=== PATIENT | male | born 1965 | race Caucasian/White ===

== ENCOUNTER 2021-01-17 14:01 | Inpatient (IN) | payer MEDICAID ==
[~2021-01-17] VITALS: Ht 172.7 cm; Wt 62.1 kg
[2021-01-17] MEDS ORDERED: morphine 4 MG/ML inj SYRINge IV PRN (14:30)
[2021-01-17] MEDS ORDERED: furosemide 10 MG/1 ML 10ml inj IV ONE (14:30)
[2021-01-17] MEDS ORDERED: nitroGLYCERIN 0.4mg SUBLingual tab SL PRN (15:05)
--- NOTE | 2021-01-17 15:15 | NUR ---
LAB AT BEDSIDE
--- NOTE | 2021-01-17 15:23 | NUR ---
ECHO AT BEDSIDE
[2021-01-17 16:39] LABS: MEAN CORPUSCULAR VOLUME 99.5 FL (78-98); MONOCYTES # (AUTO) 0.7 X10'3 (0-0.9)
[2021-01-17 16:41] LABS: BASOPHILS # (AUTO) 0.1 X10'3 (0-0.2); BASOPHILS % (AUTO) 0.7 % (0-1); EOSINOPHILS # (AUTO) 0.2 X10'3 (0-0.9); EOSINOPHILS % (AUTO) 1.8 % (0-6); HEMATOCRIT 42.6 % (42.0-52.0); HEMOGLOBIN 14.6 g/dl (14.0-17.9); LYMPHOCYTES # (AUTO) 3.7 X10'3 (1.1-4.8); LYMPHOCYTES % (AUTO) 30.2 % (21-51); MEAN CORPUSCULAR HEMOGLOBIN 34.1 PG (27.0-31.0); MEAN CORPUSCULAR HGB CONC 34.2 g/dL (33.0-36.5); MEAN PLATELET VOLUME 7.5 FL (7.4-10.4); MONOCYTES % (AUTO) 5.4 % (2-12); NEUTROPHILS # (AUTO) 7.6 X10'3 (1.8-7.7); NEUTROPHILS % (AUTO) 61.9 % (42-75); PLATELET COUNT 327 X10'3 (140-440); RED BLOOD COUNT 4.29 X10'6 (4.70-6.10); RED CELL DISTRIBUTION WIDTH 13.4 % (11.5-14.5); WHITE BLOOD COUNT 12.3 X10'3 (4.5-11.0)
[2021-01-17 16:48] LABS: ALANINE AMINOTRANSFERASE 62 U/L (12-78); ALBUMIN 3.6 G/DL (3.4-5.0); ALBUMIN/GLOBULIN RATIO 0.9 (1.1-1.5); ALKALINE PHOSPHATASE 97 IU/L (46-116); ANION GAP 11 (8-16); ASPARTATE AMINO TRANSFERASE 33 U/L (10-37); BILIRUBIN,TOTAL 0.6 MG/DL (0.1-1.0); BLOOD UREA NITROGEN 24 MG/DL (7-18); CHLORIDE 104 MMOL/L (99-107); CREATININE 1.26 MG/DL (0.60-1.10); GLUCOSE 130 MG/DL (70-104); POTASSIUM 3.8 MMOL/L (3.5-5.1); SODIUM 140 MMOL/L (135-145); TOTAL CARBON DIOXIDE 25.5 MMOL/L (24-32); TOTAL PROTEIN 7.8 G/DL (6.4-8.2); eGFR 59 ML/MIN
[2021-01-17] MEDS ORDERED: heparin 10,000 units/1 ML INJ IV PRN (17:05)
[2021-01-17] MEDS ORDERED: heparin 10,000 units/1 ML INJ IV ONE ×2 (17:05→17:20)
[2021-01-17] MEDS ORDERED: heparin 25,000 UNIT/250ml bag 250 ML IV SCH (17:05)
[2021-01-17] MEDS ORDERED: iohexol 350MG/ML 100ml bottle IV ONE (17:07)
[2021-01-17 18:12] LABS: PARTIAL THROMBOPLASTIN TIME 25 SECONDS (22-32)
[2021-01-17 18:22] LABS: CLARITY,URINE CLEAR (Clear); COLOR,URINE STRAW (Yellow); GLUCOSE, URINE NEGATIVE (Neg); KETONES,URINE NEGATIVE (Neg); LEUKOCYTE ESTERASE ,URINE NEGATIVE (Neg); NITRITES, URINE NEGATIVE (Neg); OCCULT BLOOD,URINE NEGATIVE (Neg); PROTEIN,URINE NEGATIVE (Neg); UROBILINOGEN,URINE 0.2 E.U/dL (0.2-1.0)
[2021-01-17 18:27] LABS: URINE AMPHETAMINE SCREEN POSITIVE (Neg); URINE BARBITUATE SCREEN NEGATIVE (Neg); URINE BENZODIAZEPINES SCREEN NEGATIVE (Neg); URINE CANNABINOID SCREEN NEGATIVE (Neg); URINE COCAINE SCREEN NEGATIVE (Neg); URINE METHADONE SCREEN NEGATIVE (Neg); URINE OPIATE SCREEN POSITIVE (Neg); URINE PHENCYCLIDINE SCREEN NEGATIVE (Neg)
--- NOTE | 2021-01-17 18:33 | NUR ---
SNT PT BACK TO ER, UNUSABLE IV, NEED A 20G
[2021-01-17 18:44] LABS: UA COLLECTION TYPE URINAL
--- NOTE | 2021-01-17 19:19 | NUR ---
SUSHIL GAGNON #[phone] CALL WHEN HE NEEDS A RIDE
[2021-01-17] MEDS ORDERED: NO HOME MEDS (20:46)
[2021-01-17] MEDS ORDERED: ondansetron/PF 4mg/2ml inj IV PRN (21:05)
[2021-01-17] MEDS ORDERED: morphine 2 MG/ML inj. syringe IV PRN (21:05)
[2021-01-17] MEDS ORDERED: magnesium 2GM in 50ml NS 50 ML IV PRN (21:05)
[2021-01-17] MEDS ORDERED: acetaminophen 325mg tablet PO PRN ×2 (21:05)
[2021-01-17] MEDS ORDERED: mag hydrox/Alum hydrox/simeth 30ml oral suspension PO PRN (21:05)
[2021-01-17] MEDS ORDERED: potassium Cl 40MEQ/1/2NS 520ml 520 ML IV PRN ×2 (21:05)
[2021-01-17] MEDS ORDERED: potassium Cl 20 mEq SR tablet PO PRN (21:05)
[2021-01-17] MEDS ORDERED: magnesium hydroxide 30ml (MOM) UD suspension PO PRN (21:05)
[2021-01-17] MEDS ORDERED: magnesium Cl slow-release 64mg tablet PO PRN (21:05)
[2021-01-17] MEDS ORDERED: magnesium 4gm in 100ml NS 100 ML IV PRN (21:05)
[2021-01-17] MEDS: aspirin 325mg tablet PO SCH (21:51)
[2021-01-17] MEDS: metoprolol tartrate 50mg tablet PO SCH (21:51)
[2021-01-17] MEDS: atorvastatin 20mg tablet PO SCH (21:51)
[2021-01-17 21:55] LABS: HEMOGLOBIN A1C 5.8 % (4.5-6.2)
[2021-01-17] MEDS: morphine 2 MG/ML inj. syringe IV PRN ×2 (22:50→22:53)
[2021-01-18 02:00] VITALS: BP 128/96
[2021-01-18 02:33] LABS: BASOPHILS # (AUTO) 0.1 X10'3 (0-0.2); BASOPHILS % (AUTO) 0.7 % (0-1); EOSINOPHILS # (AUTO) 0.3 X10'3 (0-0.9); EOSINOPHILS % (AUTO) 2.6 % (0-6); HEMATOCRIT 40.1 % (42.0-52.0); HEMOGLOBIN 13.7 g/dl (14.0-17.9); LYMPHOCYTES # (AUTO) 2.7 X10'3 (1.1-4.8); LYMPHOCYTES % (AUTO) 24.4 % (21-51); MEAN CORPUSCULAR HEMOGLOBIN 33.9 PG (27.0-31.0); MEAN CORPUSCULAR HGB CONC 34.2 g/dL (33.0-36.5); MEAN CORPUSCULAR VOLUME 99.2 FL (78-98); MEAN PLATELET VOLUME 7.6 FL (7.4-10.4); MONOCYTES # (AUTO) 0.7 X10'3 (0-0.9); MONOCYTES % (AUTO) 6.5 % (2-12); NEUTROPHILS # (AUTO) 7.2 X10'3 (1.8-7.7); NEUTROPHILS % (AUTO) 65.8 % (42-75); PLATELET COUNT 307 X10'3 (140-440); RED BLOOD COUNT 4.04 X10'6 (4.70-6.10); WHITE BLOOD COUNT 10.9 X10'3 (4.5-11.0)
[2021-01-18 02:42] LABS: ALANINE AMINOTRANSFERASE 52 U/L (12-78); ALBUMIN 2.9 G/DL (3.4-5.0); ALBUMIN/GLOBULIN RATIO 0.8 (1.1-1.5); ALKALINE PHOSPHATASE 83 IU/L (46-116); ANION GAP 10 (8-16); ASPARTATE AMINO TRANSFERASE 29 U/L (10-37); BILIRUBIN,TOTAL 0.6 MG/DL (0.1-1.0); BLOOD UREA NITROGEN 22 MG/DL (7-18); BUN/CREATININE RATIO 16.3 (5.4-32.0); CALCIUM 8.5 MG/DL (8.5-10.1); CHLORIDE 103 MMOL/L (99-107); CREATININE 1.35 MG/DL (0.60-1.10); GLUCOSE 120 MG/DL (70-104); POTASSIUM 3.2 MMOL/L (3.5-5.1); SODIUM 140 MMOL/L (135-145); TOTAL PROTEIN 6.6 G/DL (6.4-8.2); eGFR 55 ML/MIN
[2021-01-18 02:51] LABS: CHOL/HDL RATIO 3.2 (0.00-4.99); CHOLESTEROL 155 MG/DL (0-200); HDL CHOLESTEROL 49 MG/DL (35-60); LDL CHOLESTEROL 98 MG/DL (50-100); MAGNESIUM 1.6 MG/DL (1.5-2.4); TRIGLYCERIDES 72 MG/DL (20-135)
[2021-01-18] MEDS: HYDROcodone/acetaminophen 5mg/325mg tablet PO PRN ×2 (03:32→21:31)
[2021-01-18 06:00] VITALS: BP 154/100
--- NOTE | 2021-01-18 06:15 | NUR ---
Patient in room PCU 3023. I have received report from Wesly CUEVAS and had the opportunity to ask questions and assume patient care.
--- NOTE | 2021-01-18 06:20 | NUR ---
Patient in room PCU 3023. I have received report from FAITH Geller and had the opportunity to ask questions and assume patient care.
[2021-01-18] MEDS: aspirin 325mg tablet PO SCH (08:10)
[2021-01-18] MEDS: atorvastatin 20mg tablet PO SCH (08:10)
[2021-01-18] MEDS: cloNIDine 0.1 mg tablet PO SCH ×3 (08:11→21:31)
[2021-01-18] MEDS: lisinopril 5mg tablet PO SCH (08:11)
[2021-01-18] MEDS: furosemide 40mg/4ml inj IV SCH ×2 (08:12→21:31)
[2021-01-18] MEDS: potassium Cl 20 mEq SR tablet PO PRN ×3 (08:12→16:31)
[2021-01-18] MEDS: spironolactone 25 MG tablet PO SCH (08:12)
[2021-01-18] MEDS: metoprolol tartrate 50mg tablet PO SCH ×2 (08:13→21:31)
[2021-01-18] MEDS: K and/or MAG REPLACEMENT MC SCH ×2 (08:22→20:00)
[2021-01-18 11:00] VITALS: BP 161/65
--- NOTE | 2021-01-18 14:27 | NUR ---
I have reviewed and agree with all medications administered and interventions performed by [facility] Student, Marleni Felipe.
[2021-01-18 15:00] VITALS: BP 109/75
--- NOTE | 2021-01-18 15:35 | NUR ---
Removed EJ from right neck; it was not intact/patent - pt tolerated well. Tip intact.
--- NOTE | 2021-01-18 18:00 | NUR ---
[place] documentation: I have reviewed and agree with all interventions, assessments performed and documented by Flor CUEVAS.
--- NOTE | 2021-01-18 18:20 | NUR ---
Problems reprioritized. Patient report given, questions answered & plan of care reviewed with Wesly CUEVAS.
--- NOTE | 2021-01-18 18:27 | NUR ---
Problems reprioritized. Patient report given, questions answered & plan of care reviewed with FAITH Jarrell.
[2021-01-19 06:52] LABS: BASOPHILS % (AUTO) 0.5 % (0-1); EOSINOPHILS # (AUTO) 0.1 X10'3 (0-0.9); EOSINOPHILS % (AUTO) 1.2 % (0-6); HEMATOCRIT 46.3 % (42.0-52.0); HEMOGLOBIN 15.8 g/dl (14.0-17.9); LYMPHOCYTES # (AUTO) 2.5 X10'3 (1.1-4.8); LYMPHOCYTES % (AUTO) 24.8 % (21-51); MEAN CORPUSCULAR HEMOGLOBIN 34.6 PG (27.0-31.0); MEAN CORPUSCULAR VOLUME 101.9 FL (78-98); MEAN PLATELET VOLUME 7.9 FL (7.4-10.4); MONOCYTES # (AUTO) 0.8 X10'3 (0-0.9); MONOCYTES % (AUTO) 8.2 % (2-12); NEUTROPHILS # (AUTO) 6.5 X10'3 (1.8-7.7); NEUTROPHILS % (AUTO) 65.3 % (42-75); PLATELET COUNT 274 X10'3 (140-440); RED BLOOD COUNT 4.55 X10'6 (4.70-6.10); RED CELL DISTRIBUTION WIDTH 13.4 % (11.5-14.5); WHITE BLOOD COUNT 9.9 X10'3 (4.5-11.0)
[2021-01-19 07:00] VITALS: BP 129/77
[2021-01-19 07:19] LABS: ALANINE AMINOTRANSFERASE 41 U/L (12-78); ALBUMIN 2.8 G/DL (3.4-5.0); ALBUMIN/GLOBULIN RATIO 0.7 (1.1-1.5); ALKALINE PHOSPHATASE 81 IU/L (46-116); ANION GAP 10 (8-16); ASPARTATE AMINO TRANSFERASE 29 U/L (10-37); BILIRUBIN,TOTAL 0.4 MG/DL (0.1-1.0); BLOOD UREA NITROGEN 34 MG/DL (7-18); BUN/CREATININE RATIO 22.7 (5.4-32.0); CALCIUM 8.9 MG/DL (8.5-10.1); CHLORIDE 103 MMOL/L (99-107); GLUCOSE 89 MG/DL (70-104); MAGNESIUM 1.9 MG/DL (1.5-2.4); POTASSIUM 4.2 MMOL/L (3.5-5.1); SODIUM 139 MMOL/L (135-145); TOTAL PROTEIN 6.7 G/DL (6.4-8.2); eGFR 49 ML/MIN
[2021-01-19] MEDS: atorvastatin 20mg tablet PO SCH (07:48)
[2021-01-19] MEDS: potassium Cl 20 mEq SR tablet PO PRN (07:48)
[2021-01-19] MEDS: HYDROcodone/acetaminophen 5mg/325mg tablet PO PRN ×5 (07:49→09:00)
[2021-01-19] MEDS: metoprolol tartrate 50mg tablet PO SCH (07:49)
[2021-01-19] MEDS: furosemide 40mg/4ml inj IV SCH (07:50)
[2021-01-19] MEDS: spironolactone 25 MG tablet PO SCH (07:50)
[2021-01-19] MEDS: cloNIDine 0.1 mg tablet PO SCH (07:50)
[2021-01-19] MEDS: lisinopril 5mg tablet PO SCH (07:50)
[2021-01-19] MEDS: aspirin 325mg tablet PO SCH (07:50)
[2021-01-19] MEDS: K and/or MAG REPLACEMENT MC SCH (07:51)
--- NOTE | 2021-01-19 09:50 | NUR ---
Malnutrition consult: Pt reports wt loss with decreased appetite per malnutrition risk screen with RN. No recent wt hx in EMR, current scaled wt is appropriate. Pt on a heart healthy diet documented with 100% PO intake meeting estimated nutrient needs. Pt with no documented decrease in muscle strength or edema. Pt appears WDWN per ED report. Pt currently lacks a minimum of two criteria for malnutrition. Will continue to follow. Addendum: 01/19/21 at [address] Amended: Links added.
[2021-01-19] MEDS ORDERED: ASPI-611 PO (10:59)
[2021-01-19] MEDS ORDERED: METO50TA16 PO (10:59)
[2021-01-19] MEDS ORDERED: SPIR25TA PO (10:59)
[2021-01-19] MEDS ORDERED: ATOR20TA66 PO (10:59)
[2021-01-19] MEDS ORDERED: CLON0.1T2 PO (10:59)
[2021-01-19] MEDS ORDERED: LISI-642 PO (10:59)
[2021-01-19 11:00] VITALS: BP 101/74
--- NOTE | 2021-01-19 11:40 | NUR ---
pt dc home in zero distress. IV removed intact, pt verbalized understanding of dc instructions. pt ambulated to lobby with myself. picked pt up
== END 2021-01-19 11:37 | disposition home or self-care (01) | DRG 190 ==
LOC: ER 14:04 → ED HOLD 21:04 → PCU 3S 22:05
PROVIDERS: ADMIT Internal Medicine; ATTEND Internal Medicine
PROC: B2261ZZ Computerized Tomography (CT Scan) of Right and Left Heart using Low Osmolar Contrast (ICD-10-PCS; principal; 2021-01-17)
DX: I21.4 Non-ST elevation (NSTEMI) myocardial infarction (principal); I11.0 Hypertensive heart disease with heart failure; Z20.822 Contact with and (suspected) exposure to COVID-19; F17.210 Nicotine dependence, cigarettes, uncomplicated; F15.10 Other stimulant abuse, uncomplicated; J91.8 Pleural effusion in other conditions classified elsewhere; Z88.8 Allergy status to other drugs, medicaments and biological substances; I42.7 Cardiomyopathy due to drug and external agent; I50.23 Acute on chronic systolic (congestive) heart failure
CPT/HCPCS: 36415; 71045; 71275; 80053; 80061; 80305; 81003; 83036; 83605; 83735; 83880; 84484; 85025; 85610; 85730; 87040; 87081; 87635; 93005; 93306; 93308; 94760; 96365; 96375; 97116; 97161; 99291; 99292; C9803; G0378; J1644; J1940; J2270; J2405; Q9967

== ENCOUNTER 2021-04-19 02:15 | Inpatient (IN) | payer MEDICAID ==
[~2021-04-19] VITALS: Ht 172.7 cm; Wt 63.6 kg
[~2021-04-19 02:15] MED LIST: ATOR20TA66 PO; CLON0.1T2 PO; LISI-642 PO; METO50TA16 PO; SPIR25TA PO
[2021-04-19] MEDS ORDERED: furosemide 40mg/4ml inj IV ONE (02:35)
[2021-04-19] MEDS ORDERED: aspirin 81mg tab.chew PO ONE ×2 (02:35→04:10)
[2021-04-19] MEDS ORDERED: dexamethasone sod phosphate 10mg/ml inj IV STA (02:38)
[2021-04-19] MEDS ORDERED: ipratropium/albuterol 3ml nebule NEB ONE (02:40)
[2021-04-19 03:27] LABS: BASOPHILS # (AUTO) 0.1 X10'3 (0-0.2); BASOPHILS % (AUTO) 0.5 % (0-1); EOSINOPHILS # (AUTO) 0.1 X10'3 (0-0.9); EOSINOPHILS % (AUTO) 0.7 % (0-6); HEMATOCRIT 45.5 % (42.0-52.0); HEMOGLOBIN 15.4 g/dl (14.0-17.9); LYMPHOCYTES # (AUTO) 2.2 X10'3 (1.1-4.8); LYMPHOCYTES % (AUTO) 17.2 % (21-51); MEAN CORPUSCULAR HEMOGLOBIN 34.3 PG (27.0-31.0); MEAN CORPUSCULAR HGB CONC 33.9 g/dL (33.0-36.5); MEAN CORPUSCULAR VOLUME 101.1 FL (78-98); MEAN PLATELET VOLUME 7.5 FL (7.4-10.4); MONOCYTES # (AUTO) 0.9 X10'3 (0-0.9); MONOCYTES % (AUTO) 7.1 % (2-12); NEUTROPHILS # (AUTO) 9.7 X10'3 (1.8-7.7); NEUTROPHILS % (AUTO) 74.5 % (42-75); PLATELET COUNT 295 X10'3 (140-440); RED CELL DISTRIBUTION WIDTH 13.6 % (11.5-14.5)
[2021-04-19 03:37] LABS: ALANINE AMINOTRANSFERASE 66 U/L (12-78); ALBUMIN/GLOBULIN RATIO 0.7 (1.1-1.5); ALKALINE PHOSPHATASE 106 IU/L (46-116); ANION GAP 9 (8-16); ASPARTATE AMINO TRANSFERASE 43 U/L (10-37); BILIRUBIN,TOTAL 0.6 MG/DL (0.1-1.0); BLOOD UREA NITROGEN 31 MG/DL (7-18); BUN/CREATININE RATIO 25.6 (5.4-32.0); CALCIUM 8.8 MG/DL (8.5-10.1); CHLORIDE 99 MMOL/L (99-107); CREATININE 1.21 MG/DL (0.60-1.10); GLUCOSE 115 MG/DL (70-104); POTASSIUM 4.3 MMOL/L (3.5-5.1); SODIUM 138 MMOL/L (135-145); TOTAL CARBON DIOXIDE 30.2 MMOL/L (24-32); TOTAL PROTEIN 7.6 G/DL (6.4-8.2); eGFR 62 ML/MIN
[2021-04-19 03:55] LABS: TROPONIN I 0.65 NG/ML (0.0-0.05)
[2021-04-19] MEDS ORDERED: heparin 10,000 units/1 ML INJ IV PRN ×2 (04:00→04:05)
[2021-04-19] MEDS ORDERED: heparin 10,000 units/1 ML INJ IV ONE ×2 (04:00→04:05)
[2021-04-19] MEDS ORDERED: heparin 25,000 UNIT/250ml bag 250 ML IV SCH ×2 (04:00→04:02)
[2021-04-19] MEDS ORDERED: iohexol 350MG/ML 100ml bottle IV ONE (04:08)
[2021-04-19 04:58] LABS: D-DIMER 1.51 MG/L FEU (0-0.50)
[2021-04-19] MEDS ORDERED: magnesium Cl slow-release 64mg tablet PO PRN (05:55)
[2021-04-19] MEDS ORDERED: acetaminophen 325mg tablet PO PRN ×2 (05:55)
[2021-04-19] MEDS ORDERED: magnesium 2GM in 50ml NS 50 ML IV PRN (05:55)
[2021-04-19] MEDS ORDERED: magnesium 4gm in 100ml NS 100 ML IV PRN (05:55)
[2021-04-19] MEDS ORDERED: potassium Cl 40MEQ/1/2NS 520ml 520 ML IV PRN ×2 (05:55)
[2021-04-19] MEDS ORDERED: magnesium hydroxide 30ml (MOM) UD suspension PO PRN (05:55)
[2021-04-19] MEDS ORDERED: mag hydrox/Alum hydrox/simeth 30ml oral suspension PO PRN (05:55)
[2021-04-19] MEDS ORDERED: potassium Cl 20 mEq SR tablet PO PRN ×2 (05:55)
--- NOTE | 2021-04-19 06:47 | NUR ---
Per labels molder COVID results negative. Awaiting fax results to verify.
--- NOTE | 2021-04-19 07:07 | NUR ---
Dr. Canela paged for troponin result. Awaiting call back.
[2021-04-19 07:38] VITALS: BP 153/116
[2021-04-19] MEDS: furosemide 40mg/4ml inj IV SCH ×2 (07:51→20:02)
[2021-04-19] MEDS: metoprolol tartrate 50mg tablet PO SCH ×2 (07:52→20:03)
[2021-04-19] MEDS: albuterol 2.5 MG/3 ML nebule NEB SCH ×5 (08:00→23:18)
[2021-04-19] MEDS: K and/or MAG REPLACEMENT MC SCH ×2 (08:00→20:00)
[2021-04-19] MEDS: morphine 2 MG/ML inj. syringe IV PRN ×3 (09:33→21:58)
--- NOTE | 2021-04-19 09:36 | NUR ---
notified. PAGER ID: [phone] MESSAGE: RE; MazariegosFred. [id number]. Printing Press Operator showed me the ECHO images, it appears there is around a 2-3cm long thrombus in LV. Images should be on Infin[employer] but he is still writing report. Thanks. Dinah. [phone].
[2021-04-19] MEDS: CefTRIAXone 2gm/D5W 50ml BAG 50 ML IV SCH (09:39)
--- NOTE | 2021-04-19 09:55 | NUR ---
notified. PAGER ID: [phone] MESSAGE: RE: Fred Mazariegos. [id number]. Critical troponin. . Thanks. Dinah. [phone].
--- NOTE | 2021-04-19 10:48 | NUR ---
Received verbal orders from Dr. Canela to start 5mg PO Elaquis BID, first dose now. Once first dose is given; stop heparin drip. Dr. Mary to consult.
[2021-04-19 11:00] VITALS: BP 125/84
[2021-04-19] MEDS: apixaban 5mg tablet PO SCH ×2 (11:10→20:02)
[2021-04-19] MEDS ORDERED: SPIR25TA5 PO (13:19)
[2021-04-19] MEDS ORDERED: LISI-790 PO (13:19)
[2021-04-19] MEDS ORDERED: METO50TA17 PO (13:19)
[2021-04-19] MEDS ORDERED: ATOR20TA PO (13:19)
[2021-04-19] MEDS ORDERED: CLON0.1T PO (13:19)
[2021-04-19 15:00] VITALS: BP 119/88
--- NOTE | 2021-04-19 15:36 | NUR ---
notified. PAGER ID: [phone] MESSAGE: RE: Fred Cortez. [id number]. 12hr troponin. Critical. 3.67. Also have a question regarding anticoagulation on another patient. Thanks. Dinah. [phone].
--- NOTE | 2021-04-19 17:27 | NUR ---
notified. PAGER ID: [phone] MESSAGE: Re: Fred Mazariegos. [id number]. Usman called to notify that he is not going to consult on patient. thanks. Dinah. [phone].
--- NOTE | 2021-04-19 17:48 | NUR ---
Preceptee documentation: I have reviewed and agree with all interventions, assessments performed and documented by FAITH Uribe. Preceptee Medication Administration: For this medication-pass time frame, all medication were reviewed, dispensed, administered and documented per hospital policy by FAITH Uribe.
[2021-04-19 18:00] VITALS: BP 129/100
--- NOTE | 2021-04-19 18:26 | NUR ---
Problems reprioritized. Patient report given, questions answered & plan of care reviewed with Rubio RN.
[2021-04-19] MEDS: lactobacillus rhamnosus 10,000 MMU CELLS/CAPSULE PO SCH (20:02)
[2021-04-19] MEDS: ondansetron/PF 4mg/2ml inj IV PRN (21:58)
[2021-04-19] MEDS: temazepam 15mg capsule PO PRN (21:58)
[2021-04-19 22:00] VITALS: BP 129/87
--- NOTE | 2021-04-20 01:19 | NUR ---
patient had a 11-beat run of v-tach then converted back to normal sinus rhythm. asymptomatic vs stable, electrolytes within normal ranges. md will be notified of this .
--- NOTE | 2021-04-20 01:20 | NUR ---
Patient in room U 3016. I have received report from Dinah CUEVAS and had the opportunity to ask questions and assume patient care. Addendum: 04/20/21 at 0122 by Myriam Esparza RN received report at [id number]
[2021-04-20 02:00] VITALS: BP 129/95
[2021-04-20] MEDS: albuterol 2.5 MG/3 ML nebule NEB SCH ×6 (02:41→23:46)
[2021-04-20] MEDS: ondansetron/PF 4mg/2ml inj IV PRN (04:00)
[2021-04-20] MEDS: morphine 2 MG/ML inj. syringe IV PRN ×4 (04:01→20:48)
[2021-04-20 06:00] VITALS: BP 129/97
--- NOTE | 2021-04-20 06:08 | NUR ---
Problems reprioritized. Patient report given, questions answered & plan of care reviewed with Dinah CUEVAS & Carlene CUEVAS.
--- NOTE | 2021-04-20 06:39 | NUR ---
Patient in room PCU 3016. I have received report from FAITH Mera and had the opportunity to ask questions and assume patient care.
--- NOTE | 2021-04-20 07:09 | NUR ---
notified. PAGER ID: [phone] MESSAGE: Re: Fred Mazariegos. [id number]. t wave inversion noted in lead II, new from yesterday at this time. Thanks. Dinah. [phone].
[2021-04-20 07:35] LABS: BASOPHILS # (AUTO) 0.1 X10'3 (0-0.2); BASOPHILS % (AUTO) 0.3 % (0-1); EOSINOPHILS % (AUTO) 0 % (0-6); HEMATOCRIT 45.8 % (42.0-52.0); HEMOGLOBIN 15.5 g/dl (14.0-17.9); LYMPHOCYTES # (AUTO) 2.5 X10'3 (1.1-4.8); LYMPHOCYTES % (AUTO) 12.3 % (21-51); MEAN CORPUSCULAR HEMOGLOBIN 34.4 PG (27.0-31.0); MEAN CORPUSCULAR HGB CONC 33.8 g/dL (33.0-36.5); MEAN CORPUSCULAR VOLUME 101.6 FL (78-98); MEAN PLATELET VOLUME 7.5 FL (7.4-10.4); MONOCYTES # (AUTO) 1.3 X10'3 (0-0.9); MONOCYTES % (AUTO) 6.5 % (2-12); NEUTROPHILS # (AUTO) 16.6 X10'3 (1.8-7.7); NEUTROPHILS % (AUTO) 80.9 % (42-75); PLATELET COUNT 299 X10'3 (140-440); RED CELL DISTRIBUTION WIDTH 13.5 % (11.5-14.5); WHITE BLOOD COUNT 20.5 X10'3 (4.5-11.0)
[2021-04-20 07:52] LABS: ALANINE AMINOTRANSFERASE 57 U/L (12-78); ALBUMIN 2.9 G/DL (3.4-5.0); ALBUMIN/GLOBULIN RATIO 0.7 (1.1-1.5); ANION GAP 12 (8-16); ASPARTATE AMINO TRANSFERASE 73 U/L (10-37); BILIRUBIN,TOTAL 0.7 MG/DL (0.1-1.0); BLOOD UREA NITROGEN 44 MG/DL (7-18); BUN/CREATININE RATIO 31.4 (5.4-32.0); CALCIUM 8.9 MG/DL (8.5-10.1); CHLORIDE 95 MMOL/L (99-107); CHOL/HDL RATIO 2.9 (0.00-4.99); CHOLESTEROL 170 MG/DL (0-200); GLUCOSE 133 MG/DL (70-104); HDL CHOLESTEROL 59 MG/DL (35-60); LDL CHOLESTEROL 103 MG/DL (50-100); MAGNESIUM 2.4 MG/DL (1.5-2.4); POTASSIUM 4.1 MMOL/L (3.5-5.1); SODIUM 134 MMOL/L (135-145); TOTAL CARBON DIOXIDE 26.8 MMOL/L (24-32); TOTAL PROTEIN 7.3 G/DL (6.4-8.2); TRIGLYCERIDES 79 MG/DL (20-135); eGFR 52 ML/MIN
[2021-04-20] MEDS: K and/or MAG REPLACEMENT MC SCH ×2 (08:00→20:00)
[2021-04-20 08:18] LABS: ALKALINE PHOSPHATASE 90 IU/L (46-116)
[2021-04-20] MEDS: furosemide 40mg/4ml inj IV SCH ×2 (08:27→20:39)
[2021-04-20] MEDS: aspirin 325mg tablet PO SCH (08:28)
[2021-04-20] MEDS: apixaban 5mg tablet PO SCH ×2 (08:28→20:40)
[2021-04-20] MEDS: lactobacillus rhamnosus 10,000 MMU CELLS/CAPSULE PO SCH ×2 (08:29→20:40)
[2021-04-20] MEDS: metoprolol tartrate 50mg tablet PO SCH ×4 (08:29→20:40)
[2021-04-20] MEDS: CefTRIAXone 2gm/D5W 50ml BAG 50 ML IV SCH (08:43)
[2021-04-20] MEDS: nitroGLYCERIN 0.4mg SUBLingual tab SL PRN (10:58)
[2021-04-20 11:00] VITALS: BP 96/63
[2021-04-20 15:00] VITALS: BP 130/88
[2021-04-20] MEDS: lisinopril 5mg tablet PO SCH (15:00)
[2021-04-20] MEDS: atorvastatin 20mg tablet PO SCH (15:00)
[2021-04-20] MEDS: spironolactone 25 MG tablet PO SCH (15:00)
[2021-04-20 18:00] VITALS: BP 126/85
--- NOTE | 2021-04-20 18:36 | NUR ---
Problems reprioritized. Patient report given, questions answered & plan of care reviewed with FAITH Mcknight.
[2021-04-20 22:00] VITALS: BP 114/81
--- NOTE | 2021-04-20 22:10 | NUR ---
pt's Lantus was started without a recorded morning blood sugar. his preceding sugars were 230,241 and 153. i discussed it with the Charge nurse and she agreed with my reasoning. pt is being monitored as well.
[2021-04-21] VITALS (9 sets, daily range): BP systolic 110–142; BP diastolic 72–101
[2021-04-21] MEDS: albuterol 2.5 MG/3 ML nebule NEB SCH ×6 (03:03→23:21)
[2021-04-21] MEDS: morphine 2 MG/ML inj. syringe IV PRN ×4 (05:05→22:40)
--- NOTE | 2021-04-21 06:08 | NUR ---
Problems reprioritized. Patient report given, questions answered & plan of care reviewed with FAITH PARISH.
--- NOTE | 2021-04-21 06:20 | NUR ---
Patient in room PCU 3016. I have received report from Juan Luis CUEVAS and had the opportunity to ask questions and assume patient care.
[2021-04-21 06:57] LABS: BASOPHILS # (AUTO) 0.1 X10'3 (0-0.2); BASOPHILS % (AUTO) 0.5 % (0-1); EOSINOPHILS % (AUTO) 0.1 % (0-6); HEMATOCRIT 48.9 % (42.0-52.0); HEMOGLOBIN 16.7 g/dl (14.0-17.9); LYMPHOCYTES # (AUTO) 2.8 X10'3 (1.1-4.8); LYMPHOCYTES % (AUTO) 20.8 % (21-51); MEAN CORPUSCULAR HEMOGLOBIN 34.6 PG (27.0-31.0); MEAN CORPUSCULAR HGB CONC 34.1 g/dL (33.0-36.5); MEAN CORPUSCULAR VOLUME 101.8 FL (78-98); MEAN PLATELET VOLUME 7.9 FL (7.4-10.4); MONOCYTES # (AUTO) 1.1 X10'3 (0-0.9); NEUTROPHILS # (AUTO) 9.4 X10'3 (1.8-7.7); NEUTROPHILS % (AUTO) 70.6 % (42-75); PLATELET COUNT 322 X10'3 (140-440); RED BLOOD COUNT 4.81 X10'6 (4.70-6.10); RED CELL DISTRIBUTION WIDTH 13.7 % (11.5-14.5); WHITE BLOOD COUNT 13.3 X10'3 (4.5-11.0)
[2021-04-21 07:20] LABS: ALANINE AMINOTRANSFERASE 58 U/L (12-78); ALBUMIN/GLOBULIN RATIO 0.6 (1.1-1.5); ALKALINE PHOSPHATASE 89 IU/L (46-116); ANION GAP 13 (8-16); ASPARTATE AMINO TRANSFERASE 49 U/L (10-37); BILIRUBIN,TOTAL 0.5 MG/DL (0.1-1.0); BLOOD UREA NITROGEN 46 MG/DL (7-18); BUN/CREATININE RATIO 33.3 (5.4-32.0); CHLORIDE 93 MMOL/L (99-107); CREATININE 1.38 MG/DL (0.60-1.10); GLUCOSE 128 MG/DL (70-104); MAGNESIUM 2.3 MG/DL (1.5-2.4); POTASSIUM 4.1 MMOL/L (3.5-5.1); SODIUM 134 MMOL/L (135-145); TOTAL CARBON DIOXIDE 28.5 MMOL/L (24-32); TOTAL PROTEIN 7.7 G/DL (6.4-8.2); eGFR 53 ML/MIN
[2021-04-21] MEDS: metoprolol tartrate 50mg tablet PO SCH ×4 (08:00→20:00)
[2021-04-21] MEDS: K and/or MAG REPLACEMENT MC SCH ×2 (08:34→20:00)
[2021-04-21] MEDS: CefTRIAXone 2gm/D5W 50ml BAG 50 ML IV SCH (08:38)
[2021-04-21] MEDS: apixaban 5mg tablet PO SCH ×2 (08:52→19:12)
[2021-04-21] MEDS: aspirin 325mg tablet PO SCH (08:52)
[2021-04-21] MEDS: lisinopril 5mg tablet PO SCH (08:53)
[2021-04-21] MEDS: lactobacillus rhamnosus 10,000 MMU CELLS/CAPSULE PO SCH ×2 (08:53→19:12)
[2021-04-21] MEDS: spironolactone 25 MG tablet PO SCH (08:53)
[2021-04-21] MEDS: atorvastatin 20mg tablet PO SCH (08:53)
[2021-04-21] MEDS: nitroGLYCERIN 0.4mg SUBLingual tab SL PRN ×2 (15:35→15:40)
--- NOTE | 2021-04-21 18:44 | NUR ---
Problems reprioritized. Patient report given, questions answered & plan of care reviewed with Deborah CUEVAS. pt left side lying, denies chest pain.
[2021-04-21] MEDS: furosemide 20MG tablet PO SCH (19:12)
[2021-04-21] MEDS: temazepam 15mg capsule PO PRN (22:58)
[2021-04-22] MEDS: temazepam 15mg capsule PO PRN (00:07)
[2021-04-22 02:00] VITALS: BP 136/80
[2021-04-22] MEDS: albuterol 2.5 MG/3 ML nebule NEB SCH ×2 (03:27→07:25)
[2021-04-22 06:00] VITALS: BP 140/86
[2021-04-22] MEDS: morphine 2 MG/ML inj. syringe IV PRN (06:38)
--- NOTE | 2021-04-22 06:49 | NUR ---
Patient in room PCU 3016. I have received report from Deborah CUEVAS and had the opportunity to ask questions and assume patient care.
--- NOTE | 2021-04-22 06:50 | NUR ---
Problems reprioritized. Patient report given, questions answered & plan of care reviewed with Cheryl CUEVAS.
[2021-04-22 07:18] LABS: BASOPHILS # (AUTO) 0.1 X10'3 (0-0.2); BASOPHILS % (AUTO) 0.5 % (0-1); EOSINOPHILS % (AUTO) 0.3 % (0-6); HEMATOCRIT 47.9 % (42.0-52.0); HEMOGLOBIN 16.4 g/dl (14.0-17.9); LYMPHOCYTES # (AUTO) 2.8 X10'3 (1.1-4.8); LYMPHOCYTES % (AUTO) 23.2 % (21-51); MEAN CORPUSCULAR HEMOGLOBIN 34.3 PG (27.0-31.0); MEAN CORPUSCULAR HGB CONC 34.2 g/dL (33.0-36.5); MEAN CORPUSCULAR VOLUME 100.3 FL (78-98); MEAN PLATELET VOLUME 7.9 FL (7.4-10.4); MONOCYTES % (AUTO) 8.6 % (2-12); NEUTROPHILS # (AUTO) 8.2 X10'3 (1.8-7.7); NEUTROPHILS % (AUTO) 67.4 % (42-75); PLATELET COUNT 319 X10'3 (140-440); RED BLOOD COUNT 4.78 X10'6 (4.70-6.10); RED CELL DISTRIBUTION WIDTH 13.8 % (11.5-14.5); WHITE BLOOD COUNT 12.1 X10'3 (4.5-11.0)
[2021-04-22 07:45] LABS: ALANINE AMINOTRANSFERASE 48 U/L (12-78); ALBUMIN 2.8 G/DL (3.4-5.0); ALBUMIN/GLOBULIN RATIO 0.7 (1.1-1.5); ALKALINE PHOSPHATASE 85 IU/L (46-116); ANION GAP 10 (8-16); ASPARTATE AMINO TRANSFERASE 37 U/L (10-37); BILIRUBIN,TOTAL 0.4 MG/DL (0.1-1.0); BLOOD UREA NITROGEN 43 MG/DL (7-18); BUN/CREATININE RATIO 35.2 (5.4-32.0); CALCIUM 8.9 MG/DL (8.5-10.1); CHLORIDE 96 MMOL/L (99-107); CREATININE 1.22 MG/DL (0.60-1.10); GLUCOSE 114 MG/DL (70-104); MAGNESIUM 2.2 MG/DL (1.5-2.4); SODIUM 133 MMOL/L (135-145); TOTAL CARBON DIOXIDE 26.6 MMOL/L (24-32); TOTAL PROTEIN 7.1 G/DL (6.4-8.2); eGFR 61 ML/MIN
[2021-04-22] MEDS ORDERED: CefTRIAXone inj 2,000 MG in dextrose 5%-water 100 ML IV SCH (08:00)
[2021-04-22] MEDS: metoprolol tartrate 50mg tablet PO SCH ×2 (08:00→09:00)
[2021-04-22] MEDS: K and/or MAG REPLACEMENT MC SCH (08:00)
[2021-04-22] MEDS: atorvastatin 20mg tablet PO SCH (08:59)
[2021-04-22] MEDS: furosemide 20MG tablet PO SCH (09:00)
[2021-04-22 09:01] VITALS: BP_SYST 140
[2021-04-22] MEDS: spironolactone 25 MG tablet PO SCH (09:01)
[2021-04-22] MEDS: aspirin 325mg tablet PO SCH (09:01)
[2021-04-22] MEDS: lisinopril 5mg tablet PO SCH (09:01)
[2021-04-22] MEDS: apixaban 5mg tablet PO SCH (09:02)
[2021-04-22] MEDS: lactobacillus rhamnosus 10,000 MMU CELLS/CAPSULE PO SCH (09:02)
[2021-04-22] MEDS ORDERED: APIX5TAB3 PO (10:08)
[2021-04-22] MEDS ORDERED: ASPI-1 PO (10:08)
[2021-04-22] MEDS ORDERED: LEVO500T89 PO (10:13)
--- NOTE | 2021-04-22 11:40 | NUR ---
Patient stable for discharge per MD orders. PIV DC'd with cannula intact. Tele DC'd. Patient verbalized understanding of discharge instructions and medication regimen. He is to follow up with PCP within 1 week. Transported patient to private vehicle [facility] wheelchair.
[2021-04-27] MEDS ORDERED: apixaban 5mg tablet PO SCH (20:00)
== END 2021-04-22 11:11 | disposition home or self-care (01) | DRG 190 ==
LOC: ER 02:16 → ED HOLD 05:53 → PCU 3S 07:26
PROVIDERS: ADMIT Internal Medicine; ATTEND Internal Medicine
PROC: B2261ZZ Computerized Tomography (CT Scan) of Right and Left Heart using Low Osmolar Contrast (ICD-10-PCS; principal; 2021-04-19)
DX: I21.4 Non-ST elevation (NSTEMI) myocardial infarction (principal); I50.23 Acute on chronic systolic (congestive) heart failure; N17.9 Acute kidney failure, unspecified; I42.7 Cardiomyopathy due to drug and external agent; J44.1 Chronic obstructive pulmonary disease with (acute) exacerbation; I13.0 Hypertensive heart and chronic kidney disease with heart failure and stage 1 through stage 4 chronic kidney disease, or unspecified chronic kidney disease; N18.9 Chronic kidney disease, unspecified; I25.10 Atherosclerotic heart disease of native coronary artery without angina pectoris; F17.210 Nicotine dependence, cigarettes, uncomplicated; F15.10 Other stimulant abuse, uncomplicated; D72.829 Elevated white blood cell count, unspecified; I51.3 Intracardiac thrombosis, not elsewhere classified; Z91.14 Patient's other noncompliance with medication regimen; Z20.822 Contact with and (suspected) exposure to COVID-19
CPT/HCPCS: 36415; 71045; 71275; 80053; 80061; 83605; 83735; 83880; 84484; 85025; 85379; 85730; 87040; 87635; 93005; 93306; 94640; 94760; 96365; 96375; 97116; 97161; 97530; 99291; G0378; J0696; J1100; J1644; J1940; J2270; J2405; J7060; Q9967

== ENCOUNTER 2021-10-27 12:21 | Emergency (ER) | payer MEDICAID ==
[~2021-10-27] VITALS: Ht 172.7 cm; Wt 65.9 kg
[~2021-10-27 12:21] MED LIST changes: +APIX5TAB3 PO; +ASPI-1 PO; +ATOR20TA PO; -ATOR20TA66 PO; +CLON0.1T PO; -CLON0.1T2 PO; -LISI-642 PO; +LISI5TAB22 PO; -METO50TA16 PO; +METO50TA17 PO; -SPIR25TA PO; +SPIR25TA5 PO
[2021-10-27] MEDS ORDERED: normal saline 1000ML IV soln IVB ONE (13:20)
--- NOTE | 2021-10-27 15:53 | NUR ---
PT ABLE TO AMBULATE W/O ASSISTANCE. [facility] CALLED FOR TRANSPORTATION.
[2021-10-27 15:54] VITALS: BP 160/90
== END 2021-10-27 16:04 | disposition home or self-care (01) ==
LOC: ER 12:22
DX: T40.1X1A Poisoning by heroin, accidental (unintentional), initial encounter (principal); R53.83 Other fatigue; Y92.89 Other specified places as the place of occurrence of the external cause; F19.10 Other psychoactive substance abuse, uncomplicated; F15.10 Other stimulant abuse, uncomplicated; I11.0 Hypertensive heart disease with heart failure; J44.9 Chronic obstructive pulmonary disease, unspecified
CPT/HCPCS: 71045; 99284; J7030; 96360

== ENCOUNTER 2022-06-26 13:20 | Emergency (ER) | payer MEDICAID ==
[~2022-06-26] VITALS: Ht 172.7 cm; Wt 68.0 kg
[2022-06-26] MEDS ORDERED: METO50TA17 PO (14:21)
[2022-06-26] MEDS ORDERED: SPIR25TA5 PO (14:21)
[2022-06-26] MEDS ORDERED: LISI5TAB22 PO (14:21)
[2022-06-26] MEDS ORDERED: ATOR20TA PO (14:21)
[2022-06-26] MEDS ORDERED: metoprolol tartrate 50mg tablet PO ONE (14:25)
[2022-06-26] MEDS ORDERED: furosemide 10 MG/1 ML 10ml inj IV ONE (14:25)
[2022-06-26 15:00] VITALS: BP_DIAS 113
[2022-06-26 15:14] VITALS: BP_SYST 154
[2022-06-26 15:23] LABS: BASOPHILS % (AUTO) 0.4 % (0-1); EOSINOPHILS # (AUTO) 0.1 X10'3 (0-0.9); EOSINOPHILS % (AUTO) 0.9 % (0-6); HEMOGLOBIN 14.2 g/dl (14.0-17.9); LYMPHOCYTES # (AUTO) 2.1 X10'3 (1.1-4.8); LYMPHOCYTES % (AUTO) 22.6 % (21-51); MEAN CORPUSCULAR HEMOGLOBIN 34.8 PG (27.0-31.0); MEAN CORPUSCULAR HGB CONC 34.7 g/dL (33.0-36.5); MEAN CORPUSCULAR VOLUME 100.3 FL (78-98); MEAN PLATELET VOLUME 7.4 FL (7.4-10.4); MONOCYTES # (AUTO) 0.6 X10'3 (0-0.9); MONOCYTES % (AUTO) 6.9 % (2-12); NEUTROPHILS # (AUTO) 6.5 X10'3 (1.8-7.7); NEUTROPHILS % (AUTO) 69.2 % (42-75); PLATELET COUNT 253 X10'3 (140-440); RED BLOOD COUNT 4.09 X10'6 (4.70-6.10); RED CELL DISTRIBUTION WIDTH 13.1 % (11.5-14.5); WHITE BLOOD COUNT 9.4 X10'3 (4.5-11.0)
[2022-06-26 15:26] LABS: ALANINE AMINOTRANSFERASE 32 U/L (12-78); ALBUMIN 3.3 G/DL (3.4-5.0); ALBUMIN/GLOBULIN RATIO 0.8 (1.1-1.5); ALKALINE PHOSPHATASE 76 IU/L (46-116); ANION GAP 8 (8-16); ASPARTATE AMINO TRANSFERASE 44 U/L (10-37); BILIRUBIN,TOTAL 0.4 MG/DL (0.1-1.0); BLOOD UREA NITROGEN 17 MG/DL (7-18); BUN/CREATININE RATIO 13.3 (5.4-32.0); CALCIUM 8.7 MG/DL (8.5-10.1); CHLORIDE 105 MMOL/L (99-107); CREATININE 1.28 MG/DL (0.60-1.10); GLUCOSE 95 MG/DL (70-104); POTASSIUM 4.2 MMOL/L (3.5-5.1); SODIUM 139 MMOL/L (135-145); TOTAL CARBON DIOXIDE 26.2 MMOL/L (24-32); TOTAL PROTEIN 7.4 G/DL (6.4-8.2); eGFR 58 ML/MIN
[2022-06-26] MEDS ORDERED: FURO-150 PO (15:44)
[2022-06-26] MEDS ORDERED: APIX5TAB3 PO (15:45)
== END 2022-06-26 16:33 | disposition home or self-care (01) ==
LOC: ER 13:21
DX: I11.0 Hypertensive heart disease with heart failure (principal); I50.9 Heart failure, unspecified; J44.9 Chronic obstructive pulmonary disease, unspecified; F15.20 Other stimulant dependence, uncomplicated; Z88.5 Allergy status to narcotic agent
CPT/HCPCS: 36415; 71045; 80053; 83880; 84484; 85025; 93005; 96374; 99285; J1940

== ENCOUNTER 2022-07-20 13:28 | Inpatient (IN) | payer MEDICAID ==
[~2022-07-20] VITALS: Ht 172.7 cm; Wt 69.5 kg
[~2022-07-20 13:28] MED LIST changes: +FURO-150 PO
[2022-07-20 14:38] LABS: BASOPHILS # (AUTO) 0.1 X10'3 (0-0.2); BASOPHILS % (AUTO) 0.6 % (0-1); EOSINOPHILS % (AUTO) 0.6 % (0-6); HEMATOCRIT 43.8 % (42.0-52.0); LYMPHOCYTES # (AUTO) 1.8 X10'3 (1.1-4.8); LYMPHOCYTES % (AUTO) 21.9 % (21-51); MEAN CORPUSCULAR HEMOGLOBIN 34.3 PG (27.0-31.0); MEAN CORPUSCULAR HGB CONC 34.2 g/dL (33.0-36.5); MEAN CORPUSCULAR VOLUME 100.3 FL (78-98); MONOCYTES # (AUTO) 0.5 X10'3 (0-0.9); MONOCYTES % (AUTO) 5.7 % (2-12); NEUTROPHILS # (AUTO) 5.9 X10'3 (1.8-7.7); NEUTROPHILS % (AUTO) 71.2 % (42-75); PLATELET COUNT 219 X10'3 (140-440); RED BLOOD COUNT 4.37 X10'6 (4.70-6.10); RED CELL DISTRIBUTION WIDTH 13.1 % (11.5-14.5); WHITE BLOOD COUNT 8.3 X10'3 (4.5-11.0)
[2022-07-20 14:54] LABS: ALANINE AMINOTRANSFERASE 56 U/L (12-78); ALBUMIN 3.4 G/DL (3.4-5.0); ALBUMIN/GLOBULIN RATIO 0.9 (1.1-1.5); ALKALINE PHOSPHATASE 91 IU/L (46-116); ANION GAP 12 (8-16); ASPARTATE AMINO TRANSFERASE 49 U/L (10-37); BILIRUBIN,TOTAL 0.6 MG/DL (0.1-1.0); BLOOD UREA NITROGEN 18 MG/DL (7-18); CALCIUM 8.3 MG/DL (8.5-10.1); CHLORIDE 103 MMOL/L (99-107); CREATININE 1.29 MG/DL (0.60-1.10); GLUCOSE 119 MG/DL (70-104); POTASSIUM 3.3 MMOL/L (3.5-5.1); SODIUM 139 MMOL/L (135-145); TOTAL CARBON DIOXIDE 24.3 MMOL/L (24-32); TOTAL PROTEIN 7.4 G/DL (6.4-8.2); eGFR 57 ML/MIN
[2022-07-20] MEDS ORDERED: metoprolol succinate 25mg (24-HOUR) SR. Tablet PO ONE (16:50)
[2022-07-20] MEDS ORDERED: furosemide 10 MG/1 ML 10ml inj IV ONE (18:25)
[2022-07-20 18:58] LABS: URINE AMPHETAMINE SCREEN POSITIVE (Neg); URINE BARBITUATE SCREEN NEGATIVE (Neg); URINE BENZODIAZEPINES SCREEN NEGATIVE (Neg); URINE CANNABINOID SCREEN NEGATIVE (Neg); URINE COCAINE SCREEN NEGATIVE (Neg); URINE METHADONE SCREEN NEGATIVE (Neg); URINE OPIATE SCREEN NEGATIVE (Neg); URINE PHENCYCLIDINE SCREEN NEGATIVE (Neg)
[2022-07-20] MEDS ORDERED: mag hydrox/Alum hydrox/simeth 30ml oral suspension PO PRN (19:15)
[2022-07-20] MEDS ORDERED: ondansetron/PF 4mg/2ml inj IV PRN (19:15)
[2022-07-20] MEDS ORDERED: magnesium Cl slow-release 64mg tablet PO PRN (19:15)
[2022-07-20] MEDS ORDERED: enoxaparin 100mg/ml syringe SUBCUT ONE (19:15)
[2022-07-20] MEDS ORDERED: morphine 2 MG/ML inj. syringe IV PRN ×2 (19:15)
[2022-07-20] MEDS ORDERED: magnesium 4gm in 100ml NS 100 ML IV PRN (19:15)
[2022-07-20] MEDS ORDERED: potassium CL 10mEq/100ml bag 100 ML IV PRN (19:15)
[2022-07-20] MEDS ORDERED: magnesium hydroxide 30ml (MOM) UD suspension PO PRN (19:15)
[2022-07-20] MEDS ORDERED: acetaminophen 325mg tablet PO PRN ×2 (19:15)
[2022-07-20] MEDS ORDERED: POTASSIUM BICARB 20meq eff tab 20 MEQ TABLET.EFF PO PRN ×2 (19:15)
[2022-07-20] MEDS ORDERED: magnesium 2GM in 50ml NS 50 ML IV PRN (19:15)
[2022-07-20 19:38] LABS: MAGNESIUM 1.8 MG/DL (1.5-2.4); POTASSIUM 3.7 MMOL/L (3.5-5.1)
[2022-07-20] MEDS: docusate sod 100mg capsule PO SCH (20:00)
[2022-07-20] MEDS: K and/or MAG REPLACEMENT MC SCH (20:00)
[2022-07-20] MEDS: furosemide 20 MG/2 ML vial IV SCH (20:59)
[2022-07-20] MEDS: carvedilol 6.25mg tablet PO SCH (20:59)
[2022-07-20 22:00] VITALS: BP 120/83
--- NOTE | 2022-07-21 01:32 | NUR ---
telegraphic typewriter repairer reported 13 beats of Vtach. pt resting, denies any symptoms. 128/96, HR 113, 97%RA. Dr. Canela paged, awaiting response
[2022-07-21 02:00] VITALS: BP 129/96
[2022-07-21 06:00] VITALS: BP 128/92
--- NOTE | 2022-07-21 06:10 | NUR ---
Problems reprioritized. Patient report given, questions answered & plan of care reviewed with Katiuska CUEVAS.
--- NOTE | 2022-07-21 06:17 | NUR ---
Patient in room U 3023B. I have received report from FAITH MONTALVO and had the opportunity to ask questions and assume patient care.
[2022-07-21 06:53] LABS: BASOPHILS # (AUTO) 0.1 X10'3 (0-0.2); BASOPHILS % (AUTO) 0.7 % (0-1); EOSINOPHILS # (AUTO) 0.1 X10'3 (0-0.9); EOSINOPHILS % (AUTO) 1.4 % (0-6); HEMOGLOBIN 17.1 g/dl (14.0-17.9); LYMPHOCYTES # (AUTO) 2.6 X10'3 (1.1-4.8); LYMPHOCYTES % (AUTO) 27.4 % (21-51); MEAN CORPUSCULAR HGB CONC 34.8 g/dL (33.0-36.5); MEAN CORPUSCULAR VOLUME 100.6 FL (78-98); MEAN PLATELET VOLUME 7.8 FL (7.4-10.4); MONOCYTES # (AUTO) 0.6 X10'3 (0-0.9); MONOCYTES % (AUTO) 5.8 % (2-12); NEUTROPHILS # (AUTO) 6.2 X10'3 (1.8-7.7); NEUTROPHILS % (AUTO) 64.7 % (42-75); PLATELET COUNT 243 X10'3 (140-440); RED BLOOD COUNT 4.87 X10'6 (4.70-6.10); RED CELL DISTRIBUTION WIDTH 13.3 % (11.5-14.5); WHITE BLOOD COUNT 9.6 X10'3 (4.5-11.0)
[2022-07-21 07:06] LABS: ALBUMIN 3.3 G/DL (3.4-5.0); ANION GAP 11 (8-16); BLOOD UREA NITROGEN 24 MG/DL (7-18); BUN/CREATININE RATIO 19.2 (5.4-32.0); CALCIUM 8.7 MG/DL (8.5-10.1); CHLORIDE 101 MMOL/L (99-107); CREATININE 1.25 MG/DL (0.60-1.10); GLUCOSE 96 MG/DL (70-104); MAGNESIUM 1.6 MG/DL (1.5-2.4); POTASSIUM 3.2 MMOL/L (3.5-5.1); SODIUM 140 MMOL/L (135-145); TOTAL CARBON DIOXIDE 28.5 MMOL/L (24-32); eGFR 60 ML/MIN
[2022-07-21] MEDS: K and/or MAG REPLACEMENT MC SCH ×2 (08:00→20:00)
[2022-07-21] MEDS: docusate sod 100mg capsule PO SCH ×2 (08:00→19:54)
[2022-07-21] MEDS: atorvastatin 20mg tablet PO SCH (09:25)
[2022-07-21] MEDS: carvedilol 6.25mg tablet PO SCH ×2 (09:25→19:54)
[2022-07-21] MEDS: furosemide 20 MG/2 ML vial IV SCH ×2 (09:26→19:54)
[2022-07-21] MEDS: spironolactone 25 MG tablet PO SCH (09:26)
[2022-07-21 11:00] VITALS: BP 114/85
[2022-07-21 15:00] VITALS: BP 118/89
--- NOTE | 2022-07-21 18:32 | NUR ---
Problems reprioritized. Patient report given, questions answered & plan of care reviewed with FAITH BECKMAN.
[2022-07-21 18:40] VITALS: BP 139/97
[2022-07-21 22:00] VITALS: BP 134/97
[2022-07-22 02:00] VITALS: BP 140/70
[2022-07-22 06:00] VITALS: BP 141/95
--- NOTE | 2022-07-22 06:36 | NUR ---
Patient in room U 3023B. I have received report from FAITH BECKMAN and had the opportunity to ask questions and assume patient care.
--- NOTE | 2022-07-22 06:58 | NUR ---
Problems reprioritized. Patient report given, questions answered & plan of care reviewed with Katiuska. Addendum: 07/22/22 at 0658 by Oscar Barahona RN Amended: Links added.
[2022-07-22 07:08] LABS: BASOPHILS # (AUTO) 0.1 X10'3 (0-0.2); BASOPHILS % (AUTO) 0.7 % (0-1); EOSINOPHILS # (AUTO) 0.2 X10'3 (0-0.9); EOSINOPHILS % (AUTO) 1.7 % (0-6); HEMATOCRIT 50.9 % (42.0-52.0); HEMOGLOBIN 17.8 g/dl (14.0-17.9); LYMPHOCYTES # (AUTO) 2.6 X10'3 (1.1-4.8); LYMPHOCYTES % (AUTO) 26.1 % (21-51); MEAN CORPUSCULAR HEMOGLOBIN 34.7 PG (27.0-31.0); MEAN CORPUSCULAR HGB CONC 34.9 g/dL (33.0-36.5); MEAN CORPUSCULAR VOLUME 99.4 FL (78-98); MONOCYTES # (AUTO) 0.7 X10'3 (0-0.9); MONOCYTES % (AUTO) 6.6 % (2-12); NEUTROPHILS # (AUTO) 6.6 X10'3 (1.8-7.7); NEUTROPHILS % (AUTO) 64.9 % (42-75); PLATELET COUNT 270 X10'3 (140-440); RED BLOOD COUNT 5.12 X10'6 (4.70-6.10); RED CELL DISTRIBUTION WIDTH 13.2 % (11.5-14.5); WHITE BLOOD COUNT 10.1 X10'3 (4.5-11.0)
[2022-07-22 07:30] LABS: ALBUMIN 3.2 G/DL (3.4-5.0); ANION GAP 14 (8-16); BLOOD UREA NITROGEN 30 MG/DL (7-18); BUN/CREATININE RATIO 24.6 (5.4-32.0); CALCIUM 9.2 MG/DL (8.5-10.1); CHLORIDE 98 MMOL/L (99-107); CREATININE 1.22 MG/DL (0.60-1.10); GLUCOSE 116 MG/DL (70-104); MAGNESIUM 1.8 MG/DL (1.5-2.4); POTASSIUM 3.8 MMOL/L (3.5-5.1); SODIUM 137 MMOL/L (135-145); TOTAL CARBON DIOXIDE 24.6 MMOL/L (24-32); eGFR 61 ML/MIN
[2022-07-22] MEDS: K and/or MAG REPLACEMENT MC SCH ×2 (08:00→20:00)
[2022-07-22] MEDS: furosemide 20 MG/2 ML vial IV SCH ×2 (09:23→20:10)
[2022-07-22] MEDS: docusate sod 100mg capsule PO SCH ×2 (09:23→20:10)
[2022-07-22] MEDS: carvedilol 6.25mg tablet PO SCH ×2 (09:23→20:10)
[2022-07-22] MEDS: atorvastatin 20mg tablet PO SCH (09:23)
[2022-07-22] MEDS: spironolactone 25 MG tablet PO SCH (09:24)
[2022-07-22] MEDS: HYDROcodone/acetaminophen 5mg/325mg tablet PO PRN (10:35)
[2022-07-22 11:00] VITALS: BP 110/84
[2022-07-22 15:00] VITALS: BP 129/89
[2022-07-22 18:50] VITALS: BP 132/87
--- NOTE | 2022-07-22 18:59 | NUR ---
Problems reprioritized. Patient report given, questions answered & plan of care reviewed with FAITH BECKMAN.
[2022-07-23 06:00] VITALS: BP 124/68
--- NOTE | 2022-07-23 06:33 | NUR ---
Problems reprioritized. Patient report given, questions answered & plan of care reviewed with MILADIS. Addendum: 07/23/22 at 0634 by sOcar Barahona RN Amended: Links added.
--- NOTE | 2022-07-23 06:37 | NUR ---
Patient in room PCU 3021U. I have received report from FAITH BECKMAN and had the opportunity to ask questions and assume patient care.
[2022-07-23 07:05] LABS: ALBUMIN 3.1 G/DL (3.4-5.0); ANION GAP 11 (8-16); BLOOD UREA NITROGEN 33 MG/DL (7-18); BUN/CREATININE RATIO 24.8 (5.4-32.0); CALCIUM 9.3 MG/DL (8.5-10.1); CHLORIDE 100 MMOL/L (99-107); CREATININE 1.33 MG/DL (0.60-1.10); GLUCOSE 99 MG/DL (70-104); MAGNESIUM 1.7 MG/DL (1.5-2.4); POTASSIUM 3.9 MMOL/L (3.5-5.1); SODIUM 138 MMOL/L (135-145); TOTAL CARBON DIOXIDE 27.3 MMOL/L (24-32); eGFR 55 ML/MIN
[2022-07-23 07:16] LABS: BASOPHILS # (AUTO) 0.1 X10'3 (0-0.2); BASOPHILS % (AUTO) 1.4 % (0-1); EOSINOPHILS # (AUTO) 0.1 X10'3 (0-0.9); EOSINOPHILS % (AUTO) 1.3 % (0-6); HEMATOCRIT 52.4 % (42.0-52.0); LYMPHOCYTES # (AUTO) 1.9 X10'3 (1.1-4.8); LYMPHOCYTES % (AUTO) 19.4 % (21-51); MEAN CORPUSCULAR HEMOGLOBIN 34.5 PG (27.0-31.0); MEAN CORPUSCULAR HGB CONC 34.9 g/dL (33.0-36.5); MEAN CORPUSCULAR VOLUME 98.7 FL (78-98); MEAN PLATELET VOLUME 8.1 FL (7.4-10.4); MONOCYTES # (AUTO) 0.7 X10'3 (0-0.9); MONOCYTES % (AUTO) 7.1 % (2-12); NEUTROPHILS # (AUTO) 6.9 X10'3 (1.8-7.7); NEUTROPHILS % (AUTO) 70.8 % (42-75); PLATELET COUNT 266 X10'3 (140-440); RED BLOOD COUNT 5.31 X10'6 (4.70-6.10); RED CELL DISTRIBUTION WIDTH 13.1 % (11.5-14.5); WHITE BLOOD COUNT 9.8 X10'3 (4.5-11.0)
[2022-07-23 07:22] LABS: HEMOGLOBIN 18.3 g/dl (14.0-17.9)
--- NOTE | 2022-07-23 07:31 | NUR ---
CRITICAL HGB 18.3, DR CASTILLO AWAITING CALL BACK PAGER ID: [phone] MESSAGE: CHRISSIE [id number]: CRITICAL HGB 18.3. THANK YOU MILADIS [phone]
[2022-07-23] MEDS: K and/or MAG REPLACEMENT MC SCH ×2 (08:00→20:00)
[2022-07-23] MEDS: atorvastatin 20mg tablet PO SCH (08:17)
[2022-07-23] MEDS: docusate sod 100mg capsule PO SCH ×2 (08:17→21:20)
[2022-07-23] MEDS: carvedilol 6.25mg tablet PO SCH ×2 (08:17→21:20)
[2022-07-23] MEDS: furosemide 20 MG/2 ML vial IV SCH ×2 (08:18→21:19)
[2022-07-23] MEDS: spironolactone 25 MG tablet PO SCH (08:18)
[2022-07-23] MEDS: HYDROcodone/acetaminophen 5mg/325mg tablet PO PRN (08:35)
[2022-07-23 11:00] VITALS: BP 104/71
[2022-07-23 15:00] VITALS: BP 136/83
[2022-07-23 18:00] VITALS: BP 131/100
--- NOTE | 2022-07-23 19:00 | NUR ---
Problems reprioritized. Patient report given, questions answered & plan of care reviewed with FAITH SHAFFER.
[2022-07-23 22:00] VITALS: BP 159/69
[2022-07-24 06:00] VITALS: BP 138/95
[2022-07-24 06:45] LABS: ALBUMIN 3.2 G/DL (3.4-5.0); ANION GAP 9 (8-16); BLOOD UREA NITROGEN 37 MG/DL (7-18); BUN/CREATININE RATIO 28.9 (5.4-32.0); CALCIUM 8.9 MG/DL (8.5-10.1); CHLORIDE 98 MMOL/L (99-107); CREATININE 1.28 MG/DL (0.60-1.10); GLUCOSE 101 MG/DL (70-104); MAGNESIUM 1.9 MG/DL (1.5-2.4); SODIUM 134 MMOL/L (135-145); TOTAL CARBON DIOXIDE 27.2 MMOL/L (24-32); eGFR 58 ML/MIN
[2022-07-24 06:48] LABS: BASOPHILS # (AUTO) 0.1 X10'3 (0-0.2); BASOPHILS % (AUTO) 0.7 % (0-1); EOSINOPHILS # (AUTO) 0.2 X10'3 (0-0.9); EOSINOPHILS % (AUTO) 2.1 % (0-6); HEMATOCRIT 49.3 % (42.0-52.0); HEMOGLOBIN 17.3 g/dl (14.0-17.9); LYMPHOCYTES # (AUTO) 2.3 X10'3 (1.1-4.8); LYMPHOCYTES % (AUTO) 24.7 % (21-51); MEAN CORPUSCULAR HEMOGLOBIN 34.6 PG (27.0-31.0); MEAN CORPUSCULAR HGB CONC 35.1 g/dL (33.0-36.5); MEAN CORPUSCULAR VOLUME 98.6 FL (78-98); MONOCYTES # (AUTO) 0.9 X10'3 (0-0.9); MONOCYTES % (AUTO) 9.9 % (2-12); NEUTROPHILS # (AUTO) 5.8 X10'3 (1.8-7.7); NEUTROPHILS % (AUTO) 62.6 % (42-75); PLATELET COUNT 271 X10'3 (140-440); RED CELL DISTRIBUTION WIDTH 13.1 % (11.5-14.5); WHITE BLOOD COUNT 9.3 X10'3 (4.5-11.0)
--- NOTE | 2022-07-24 06:59 | NUR ---
Problems reprioritized. Patient report given, questions answered & plan of care reviewed with EDWARDO CUEVAS.
[2022-07-24] MEDS: docusate sod 100mg capsule PO SCH (08:00)
[2022-07-24] MEDS: K and/or MAG REPLACEMENT MC SCH (08:44)
[2022-07-24] MEDS: atorvastatin 20mg tablet PO SCH (08:57)
[2022-07-24] MEDS: spironolactone 25 MG tablet PO SCH (08:57)
[2022-07-24] MEDS: carvedilol 6.25mg tablet PO SCH (08:57)
[2022-07-24] MEDS: furosemide 20 MG/2 ML vial IV SCH (08:58)
[2022-07-24 11:00] VITALS: BP 118/83
--- NOTE | 2022-07-24 12:09 | NUR ---
Nursing called Dr. Mary's office, and Dr. Umaña's office attempting to set an appointment for this new diagnosis of heart failure. Pt. does not have a primary MD, and is advised to set an appointment at once for follow up. He is going home in a life vest and is instructed in the seriousness of obtaining medical follow up for his heart failure. given written discharge Instructions with heart failure information. Referred to [facility] where he has been seen in the past.
--- NOTE | 2022-07-24 13:04 | NUR ---
Discharged with [employer] heart equipment. Pt. is instructed in heart health and heart failure. He will follow up with his clinic and a message is left with the clinic, requesting an appointment [facility]. Pt. is instructed to call the clinic and start the follow up process.
== END 2022-07-24 13:00 | disposition home or self-care (01) | DRG 194 ==
LOC: ER 13:28 → ED HOLD 19:20 → EDBEDREQ 21:26 → PCU 3S 21:45
PROVIDERS: ADMIT Internal Medicine; ATTEND Internal Medicine
DX: I13.0 Hypertensive heart and chronic kidney disease with heart failure and stage 1 through stage 4 chronic kidney disease, or unspecified chronic kidney disease (principal); I21.A1 Myocardial infarction type 2; N17.9 Acute kidney failure, unspecified; E78.5 Hyperlipidemia, unspecified; E87.6 Hypokalemia; I50.23 Acute on chronic systolic (congestive) heart failure; F15.90 Other stimulant use, unspecified, uncomplicated; F17.210 Nicotine dependence, cigarettes, uncomplicated; I25.10 Atherosclerotic heart disease of native coronary artery without angina pectoris; J44.9 Chronic obstructive pulmonary disease, unspecified; N18.30 Chronic kidney disease, stage 3 unspecified; Z91.19 Patient's noncompliance with other medical treatment and regimen; Z88.5 Allergy status to narcotic agent; Z79.899 Other long term (current) drug therapy; Z79.82 Long term (current) use of aspirin
CPT/HCPCS: 36415; 71045; 80048; 80053; 80305; 83735; 83880; 84132; 84484; 85025; 87081; 93005; 93306; 96374; 99285; G0378; J1650; J1940; J2270

== ENCOUNTER 2022-08-03 12:15 | Inpatient (IN) | payer MEDICAID ==
[~2022-08-03] VITALS: Ht 175.3 cm; Wt 65.2 kg
[~2022-08-03 12:15] MED LIST changes: -CLON0.1T PO; -FURO-150 PO
[2022-08-03 13:14] LABS: BASOPHILS % (AUTO) 0.3 % (0-1); EOSINOPHILS # (AUTO) 0.1 X10'3 (0-0.9); EOSINOPHILS % (AUTO) 1.1 % (0-6); HEMATOCRIT 41.1 % (42.0-52.0); HEMOGLOBIN 14.4 g/dl (14.0-17.9); LYMPHOCYTES # (AUTO) 1.9 X10'3 (1.1-4.8); LYMPHOCYTES % (AUTO) 18.1 % (21-51); MEAN CORPUSCULAR HEMOGLOBIN 34.5 PG (27.0-31.0); MEAN CORPUSCULAR VOLUME 98.8 FL (78-98); MONOCYTES # (AUTO) 0.6 X10'3 (0-0.9); NEUTROPHILS % (AUTO) 74.5 % (42-75); PLATELET COUNT 266 X10'3 (140-440); RED BLOOD COUNT 4.16 X10'6 (4.70-6.10); RED CELL DISTRIBUTION WIDTH 13.2 % (11.5-14.5); WHITE BLOOD COUNT 10.7 X10'3 (4.5-11.0)
[2022-08-03 13:16] LABS: ALANINE AMINOTRANSFERASE 32 U/L (12-78); ALBUMIN 3.1 G/DL (3.4-5.0); ALBUMIN/GLOBULIN RATIO 0.7 (1.1-1.5); ALKALINE PHOSPHATASE 80 IU/L (46-116); ANION GAP 11 (8-16); ASPARTATE AMINO TRANSFERASE 35 U/L (10-37); BILIRUBIN,TOTAL 0.5 MG/DL (0.1-1.0); BLOOD UREA NITROGEN 18 MG/DL (7-18); BUN/CREATININE RATIO 16.1 (5.4-32.0); CALCIUM 8.3 MG/DL (8.5-10.1); CHLORIDE 104 MMOL/L (99-107); CREATININE 1.12 MG/DL (0.60-1.10); GLUCOSE 122 MG/DL (70-104); POTASSIUM 3.3 MMOL/L (3.5-5.1); SODIUM 138 MMOL/L (135-145); TOTAL CARBON DIOXIDE 23.2 MMOL/L (24-32); TOTAL PROTEIN 7.3 G/DL (6.4-8.2); eGFR 68 ML/MIN
[2022-08-03] MEDS ORDERED: nitroGLYCERIN 0.4mg/hour patch TD ONE (16:50)
[2022-08-03] MEDS ORDERED: metoprolol tartrate 1mg/ml inj IV ONE (16:50)
[2022-08-03] MEDS ORDERED: aspirin 81mg tab.chew PO ONE (16:50)
[2022-08-03] MEDS ORDERED: potassium CL 10mEq/100ml bag 100 ML IV PRN (17:50)
[2022-08-03] MEDS ORDERED: bisacodyl 10mg suppository rectal RC PRN (17:50)
[2022-08-03] MEDS ORDERED: ondansetron 4mg rapidly disintigrating tab PO PRN (17:50)
[2022-08-03] MEDS ORDERED: mag hydrox/Alum hydrox/simeth 30ml oral suspension PO PRN (17:50)
[2022-08-03] MEDS ORDERED: magnesium 4gm in 100ml NS 100 ML IV PRN (17:50)
[2022-08-03] MEDS ORDERED: ondansetron/PF 4mg/2ml inj IV PRN (17:50)
[2022-08-03] MEDS ORDERED: HYDROcodone/acetaminophen 5mg/325mg tablet PO PRN (17:50)
[2022-08-03] MEDS ORDERED: magnesium hydroxide 30ml (MOM) UD suspension PO PRN (17:50)
[2022-08-03] MEDS ORDERED: acetaminophen 325mg tablet PO PRN ×2 (17:50)
[2022-08-03] MEDS ORDERED: HYDROmorphone/PF 0.2 MG/ML SYRINGE IV PRN (17:50)
[2022-08-03] MEDS ORDERED: magnesium 2GM in 50ml NS 50 ML IV PRN (17:50)
[2022-08-03] MEDS ORDERED: acetaminophen 650mg rectal suppository RC PRN (17:50)
[2022-08-03] MEDS ORDERED: HYDROcodone/acetaminophen 10/325mg tab PO PRN (17:50)
[2022-08-03] MEDS ORDERED: POTASSIUM BICARB 20meq eff tab 20 MEQ TABLET.EFF PO PRN (17:50)
[2022-08-03] MEDS ORDERED: magnesium Cl slow-release 64mg tablet PO PRN (17:50)
[2022-08-03] MEDS: nicotine 14mg patch - 24hr TD SCH (18:15)
[2022-08-03 18:31] LABS: MAGNESIUM 1.7 MG/DL (1.5-2.4); POTASSIUM 3.3 MMOL/L (3.5-5.1)
[2022-08-03] MEDS ORDERED: ATOR20TA66 PO (19:13)
[2022-08-03] MEDS ORDERED: APIX5TAB3 PO (19:13)
[2022-08-03] MEDS ORDERED: METO50TA16 PO (19:13)
[2022-08-03] MEDS ORDERED: SPIR25TA5 PO (19:14)
[2022-08-03] MEDS ORDERED: LISI5TAB22 PO (19:15)
[2022-08-03] MEDS ORDERED: ASPI-10 PO (19:15)
[2022-08-03] MEDS ORDERED: FURO20TA4 PO (19:59)
[2022-08-03] MEDS: K and/or MAG REPLACEMENT MC SCH (20:00)
--- NOTE | 2022-08-03 20:24 | NUR ---
Dr. Jaramillo aware of elevated Troponin and no new orders
[2022-08-03] MEDS ORDERED: temazepam 15mg capsule PO PRN (21:00)
[2022-08-03] MEDS: POTASSIUM BICARB 20meq eff tab 20 MEQ TABLET.EFF PO PRN (21:10)
[2022-08-03] MEDS: apixaban 5mg tablet PO SCH (21:10)
[2022-08-03] MEDS: carVEDilol 3.125mg tablet PO SCH (21:10)
[2022-08-03] MEDS: furosemide 20 MG/2 ML vial IV SCH (21:10)
[2022-08-03] MEDS: docusate sod 100mg capsule PO SCH (21:10)
--- NOTE | 2022-08-03 21:22 | NUR ---
Patient declined nicotine patch tonaguilar, states it gives him nightmares. He would Like a patch in the morning
[2022-08-04] MEDS: POTASSIUM BICARB 20meq eff tab 20 MEQ TABLET.EFF PO PRN (01:30)
--- NOTE | 2022-08-04 02:30 | NUR ---
Pt asked not to be disturbed for vital signs.
[2022-08-04] MEDS: docusate sod 100mg capsule PO SCH (07:46)
[2022-08-04] MEDS: carVEDilol 3.125mg tablet PO SCH (07:46)
[2022-08-04] MEDS: K and/or MAG REPLACEMENT MC SCH (07:47)
[2022-08-04] MEDS: apixaban 5mg tablet PO SCH (07:47)
[2022-08-04] MEDS: furosemide 20 MG/2 ML vial IV SCH (07:47)
[2022-08-04] MEDS: nicotine 14mg patch - 24hr TD SCH (07:51)
[2022-08-04] MEDS ORDERED: aspirin 325mg tablet, delayed-release (Ecotrin) PO SCH (08:00)
[2022-08-04] MEDS ORDERED: EMPAGLIFLOZIN 10 MG TABLET PO SCH (08:00)
[2022-08-04] MEDS ORDERED: metoprolol succinate 25mg (24-HOUR) SR. Tablet PO SCH (08:00)
[2022-08-04] MEDS ORDERED: atorvastatin 20mg tablet PO SCH (08:00)
[2022-08-04 09:23] LABS: ALANINE AMINOTRANSFERASE 28 U/L (12-78); ALBUMIN 2.9 G/DL (3.4-5.0); ALBUMIN/GLOBULIN RATIO 0.7 (1.1-1.5); ALKALINE PHOSPHATASE 80 IU/L (46-116); ANION GAP 7 (8-16); ASPARTATE AMINO TRANSFERASE 28 U/L (10-37); BILIRUBIN,TOTAL 0.8 MG/DL (0.1-1.0); BLOOD UREA NITROGEN 20 MG/DL (7-18); BUN/CREATININE RATIO 16.5 (5.4-32.0); CALCIUM 8.7 MG/DL (8.5-10.1); CHLORIDE 102 MMOL/L (99-107); CREATININE 1.21 MG/DL (0.60-1.10); GLUCOSE 174 MG/DL (70-104); MAGNESIUM 1.6 MG/DL (1.5-2.4); POTASSIUM 4.2 MMOL/L (3.5-5.1); SODIUM 138 MMOL/L (135-145); TOTAL CARBON DIOXIDE 29.1 MMOL/L (24-32); TOTAL PROTEIN 6.9 G/DL (6.4-8.2); eGFR 62 ML/MIN
[2022-08-04] MEDS ORDERED: METO50TA16 PO (10:07)
[2022-08-04] MEDS ORDERED: SPIR25TA5 PO (10:07)
[2022-08-04] MEDS ORDERED: ASPI-1071 PO (10:07)
[2022-08-04] MEDS ORDERED: EMPA10TA PO (10:07)
[2022-08-04] MEDS ORDERED: LISI5TAB22 PO (10:07)
[2022-08-04] MEDS ORDERED: NICO-631 TD (10:07)
[2022-08-04] MEDS ORDERED: ATOR20TA66 PO (10:07)
[2022-08-04] MEDS ORDERED: FURO20TA4 PO (10:07)
[2022-08-04] MEDS ORDERED: APIX5TAB3 PO (10:07)
[2022-08-04 10:25] VITALS: BP 116/72
== END 2022-08-04 11:04 | disposition home or self-care (01) | DRG 812 ==
LOC: ER 12:16 → ED HOLD 17:58
PROVIDERS: ADMIT Family Medicine; ATTEND Family Medicine
DX: T43.621A Poisoning by amphetamines, accidental (unintentional), initial encounter (principal); I21.A1 Myocardial infarction type 2; I50.23 Acute on chronic systolic (congestive) heart failure; N17.9 Acute kidney failure, unspecified; E78.5 Hyperlipidemia, unspecified; I13.0 Hypertensive heart and chronic kidney disease with heart failure and stage 1 through stage 4 chronic kidney disease, or unspecified chronic kidney disease; N18.9 Chronic kidney disease, unspecified; I25.10 Atherosclerotic heart disease of native coronary artery without angina pectoris; R00.0 Tachycardia, unspecified; J44.9 Chronic obstructive pulmonary disease, unspecified; F15.10 Other stimulant abuse, uncomplicated; F17.210 Nicotine dependence, cigarettes, uncomplicated; Z79.84 Long term (current) use of oral hypoglycemic drugs; Z79.82 Long term (current) use of aspirin; Z79.01 Long term (current) use of anticoagulants; Z88.5 Allergy status to narcotic agent; Z79.899 Other long term (current) drug therapy; Y92.89 Other specified places as the place of occurrence of the external cause
CPT/HCPCS: 36415; 71045; 80053; 83735; 83880; 84132; 84484; 85025; 96374; 99291; G0378; J1940; J3490

== ENCOUNTER 2022-08-06 06:58 | Emergency (ER) | payer MEDICAID ==
[~2022-08-06] VITALS: Ht 172.7 cm; Wt 70.5 kg
[~2022-08-06 06:58] MED LIST changes: -ASPI-1 PO; +ASPI-1071 PO; -ATOR20TA PO; +ATOR20TA66 PO; +EMPA10TA PO; +FURO20TA4 PO; +METO50TA16 PO; -METO50TA17 PO; +NICO-631 TD
[2022-08-06] MEDS ORDERED: carVEDilol 3.125mg tablet PO ONE (07:45)
[2022-08-06] MEDS ORDERED: carVEDilol 3.125mg tablet PO SCH (07:45)
[2022-08-06 08:02] LABS: BASOPHILS # (AUTO) 0.1 X10'3 (0-0.2); BASOPHILS % (AUTO) 0.5 % (0-1); EOSINOPHILS # (AUTO) 0.2 X10'3 (0-0.9); EOSINOPHILS % (AUTO) 1.2 % (0-6); HEMATOCRIT 46.7 % (42.0-52.0); LYMPHOCYTES # (AUTO) 2.1 X10'3 (1.1-4.8); MEAN CORPUSCULAR HEMOGLOBIN 34.4 PG (27.0-31.0); MEAN CORPUSCULAR HGB CONC 34.2 g/dL (33.0-36.5); MEAN CORPUSCULAR VOLUME 100.3 FL (78-98); MEAN PLATELET VOLUME 7.3 FL (7.4-10.4); MONOCYTES # (AUTO) 0.8 X10'3 (0-0.9); MONOCYTES % (AUTO) 5.8 % (2-12); NEUTROPHILS # (AUTO) 9.9 X10'3 (1.8-7.7); NEUTROPHILS % (AUTO) 76.5 % (42-75); PLATELET COUNT 329 X10'3 (140-440); RED BLOOD COUNT 4.66 X10'6 (4.70-6.10); RED CELL DISTRIBUTION WIDTH 13.3 % (11.5-14.5)
[2022-08-06 08:33] LABS: ALANINE AMINOTRANSFERASE 24 U/L (12-78); ALBUMIN 3.2 G/DL (3.4-5.0); ALBUMIN/GLOBULIN RATIO 0.8 (1.1-1.5); ALKALINE PHOSPHATASE 87 IU/L (46-116); ANION GAP 12 (8-16); ASPARTATE AMINO TRANSFERASE 26 U/L (10-37); BILIRUBIN,TOTAL 0.3 MG/DL (0.1-1.0); BLOOD UREA NITROGEN 32 MG/DL (7-18); CHLORIDE 104 MMOL/L (99-107); CREATININE 1.23 MG/DL (0.60-1.10); GLUCOSE 113 MG/DL (70-104); POTASSIUM 4.2 MMOL/L (3.5-5.1); SODIUM 139 MMOL/L (135-145); TOTAL CARBON DIOXIDE 23.2 MMOL/L (24-32); TOTAL PROTEIN 7.3 G/DL (6.4-8.2); eGFR 61 ML/MIN
[2022-08-06 08:42] LABS: ETHANOL < 0.010 GM/DL (0.0-0.010)
--- NOTE | 2022-08-06 09:08 | NUR ---
Pt ambulated to bathroom, gait steady.
[2022-08-06 11:04] LABS: URINE AMPHETAMINE SCREEN POSITIVE (Neg); URINE BARBITUATE SCREEN NEGATIVE (Neg); URINE BENZODIAZEPINES SCREEN NEGATIVE (Neg); URINE CANNABINOID SCREEN NEGATIVE (Neg); URINE COCAINE SCREEN NEGATIVE (Neg); URINE METHADONE SCREEN NEGATIVE (Neg); URINE OPIATE SCREEN NEGATIVE (Neg); URINE PHENCYCLIDINE SCREEN NEGATIVE (Neg)
[2022-08-06 11:58] VITALS: BP 135/98
== END 2022-08-06 12:00 | disposition home or self-care (01) ==
LOC: ER 06:58
DX: I11.0 Hypertensive heart disease with heart failure (principal); I50.9 Heart failure, unspecified; I42.7 Cardiomyopathy due to drug and external agent; R07.89 Other chest pain; I25.10 Atherosclerotic heart disease of native coronary artery without angina pectoris; J44.9 Chronic obstructive pulmonary disease, unspecified; F15.90 Other stimulant use, unspecified, uncomplicated; Z98.890 Other specified postprocedural states; Z72.89 Other problems related to lifestyle; Z88.5 Allergy status to narcotic agent; Z79.82 Long term (current) use of aspirin; Z79.2 Long term (current) use of antibiotics; Z79.899 Other long term (current) drug therapy
CPT/HCPCS: 36415; 71045; 80053; 80305; 80320; 83880; 84484; 85025; 93005; 99285

== ENCOUNTER 2022-10-08 01:45 | Emergency (ER) | payer MEDICAID ==
[~2022-10-08] VITALS: Ht 172.7 cm; Wt 69.1 kg
[2022-10-08 03:27] LABS: BASOPHILS % (AUTO) 0.5 % (0-1); EOSINOPHILS # (AUTO) 0.1 X10'3 (0-0.9); HEMATOCRIT 41.6 % (42.0-52.0); HEMOGLOBIN 14.5 g/dl (14.0-17.9); LYMPHOCYTES # (AUTO) 2.2 X10'3 (1.1-4.8); LYMPHOCYTES % (AUTO) 21.2 % (21-51); MEAN CORPUSCULAR HEMOGLOBIN 35.5 PG (27.0-31.0); MEAN CORPUSCULAR HGB CONC 34.9 g/dL (33.0-36.5); MEAN CORPUSCULAR VOLUME 101.7 FL (78-98); MEAN PLATELET VOLUME 7.3 FL (7.4-10.4); MONOCYTES # (AUTO) 0.8 X10'3 (0-0.9); MONOCYTES % (AUTO) 7.5 % (2-12); NEUTROPHILS # (AUTO) 7.1 X10'3 (1.8-7.7); NEUTROPHILS % (AUTO) 69.8 % (42-75); PLATELET COUNT 246 X10'3 (140-440); RED BLOOD COUNT 4.09 X10'6 (4.70-6.10); RED CELL DISTRIBUTION WIDTH 13.6 % (11.5-14.5); WHITE BLOOD COUNT 10.2 X10'3 (4.5-11.0)
[2022-10-08 03:45] LABS: ALANINE AMINOTRANSFERASE 62 U/L (12-78); ALBUMIN 3.5 G/DL (3.4-5.0); ALBUMIN/GLOBULIN RATIO 0.9 (1.1-1.5); ALKALINE PHOSPHATASE 93 IU/L (46-116); ANION GAP 12 (8-16); ASPARTATE AMINO TRANSFERASE 67 U/L (10-37); BILIRUBIN,TOTAL 0.9 MG/DL (0.1-1.0); BLOOD UREA NITROGEN 23 MG/DL (7-18); BUN/CREATININE RATIO 20.9 (5.4-32.0); CHLORIDE 103 MMOL/L (99-107); GLUCOSE 106 MG/DL (70-104); POTASSIUM 4.2 MMOL/L (3.5-5.1); SODIUM 138 MMOL/L (135-145); TOTAL CARBON DIOXIDE 23.3 MMOL/L (24-32); TOTAL PROTEIN 7.5 G/DL (6.4-8.2); eGFR 69 ML/MIN
[2022-10-08] MEDS ORDERED: furosemide 10 MG/1 ML 10ml inj IV ONE (04:10)
[2022-10-08] MEDS ORDERED: APIX5TAB3 PO (05:36)
[2022-10-08] MEDS ORDERED: SPIR25TA5 PO (05:36)
[2022-10-08] MEDS ORDERED: ATOR20TA PO (05:36)
[2022-10-08] MEDS ORDERED: FURO-150 PO (05:36)
[2022-10-08] MEDS ORDERED: LISI5TAB22 PO (05:36)
[2022-10-08] MEDS ORDERED: METO50TA17 PO (05:36)
[2022-10-08 07:47] VITALS: BP 162/105
== END 2022-10-08 07:57 | disposition home or self-care (01) ==
LOC: ER 01:45
DX: I11.0 Hypertensive heart disease with heart failure (principal); I50.9 Heart failure, unspecified; R06.02 Shortness of breath; R09.89 Other specified symptoms and signs involving the circulatory and respiratory systems; R07.89 Other chest pain; I25.10 Atherosclerotic heart disease of native coronary artery without angina pectoris; J44.9 Chronic obstructive pulmonary disease, unspecified; F15.90 Other stimulant use, unspecified, uncomplicated; Z98.890 Other specified postprocedural states; Z72.89 Other problems related to lifestyle; Z88.5 Allergy status to narcotic agent; Z79.82 Long term (current) use of aspirin; Z79.899 Other long term (current) drug therapy
CPT/HCPCS: 36415; 71045; 80053; 83880; 84484; 85025; 93005; 96374; 99285; J1940

== ENCOUNTER 2022-11-16 16:28 | Emergency (ER) | payer MEDICAID ==
[~2022-11-16] VITALS: Ht 172.7 cm; Wt 69.0 kg
[~2022-11-16 16:28] MED LIST changes: +METO50TA17 PO
[2022-11-16 16:48] LABS: BASOPHILS % (AUTO) 0.5 % (0-1); EOSINOPHILS % (AUTO) 0.2 % (0-6); HEMATOCRIT 47.8 % (42.0-52.0); HEMOGLOBIN 16.2 g/dl (14.0-17.9); LYMPHOCYTES # (AUTO) 2.1 X10'3 (1.1-4.8); LYMPHOCYTES % (AUTO) 21.4 % (21-51); MEAN CORPUSCULAR HEMOGLOBIN 35.6 PG (27.0-31.0); MEAN CORPUSCULAR VOLUME 104.8 FL (78-98); MEAN PLATELET VOLUME 7.7 FL (7.4-10.4); MONOCYTES % (AUTO) 9.9 % (2-12); NEUTROPHILS # (AUTO) 6.7 X10'3 (1.8-7.7); PLATELET COUNT 239 X10'3 (140-440); RED BLOOD COUNT 4.56 X10'6 (4.70-6.10); RED CELL DISTRIBUTION WIDTH 13.8 % (11.5-14.5); WHITE BLOOD COUNT 9.9 X10'3 (4.5-11.0)
[2022-11-16 17:25] LABS: ALANINE AMINOTRANSFERASE 862 U/L (12-78); ALBUMIN 3.8 G/DL (3.4-5.0); ALBUMIN/GLOBULIN RATIO 0.9 (1.1-1.5); ALKALINE PHOSPHATASE 105 IU/L (46-116); ANION GAP 10 (8-16); BILIRUBIN,TOTAL 1.5 MG/DL (0.1-1.0); BLOOD UREA NITROGEN 32 MG/DL (7-18); BUN/CREATININE RATIO 20.9 (5.4-32.0); CALCIUM 9.6 MG/DL (8.5-10.1); CHLORIDE 99 MMOL/L (99-107); CREATININE 1.53 MG/DL (0.60-1.10); GLUCOSE 138 MG/DL (70-104); MAGNESIUM 1.7 MG/DL (1.5-2.4); POTASSIUM 4.2 MMOL/L (3.5-5.1); SODIUM 135 MMOL/L (135-145); TOTAL CARBON DIOXIDE 25.7 MMOL/L (24-32); TOTAL PROTEIN 7.9 G/DL (6.4-8.2); eGFR 47 ML/MIN
[2022-11-16 17:27] LABS: ASPARTATE AMINO TRANSFERASE 1288 U/L (10-37)
[2022-11-16] MEDS ORDERED: magnesium 4gm in 100ml NS 100 ML IV ONE (18:40)
[2022-11-16] MEDS ORDERED: MAGN64TA8 PO (19:39)
[2022-11-16 19:59] VITALS: BP 141/96
== END 2022-11-16 20:01 | disposition home or self-care (01) ==
LOC: ER 16:29
DX: I11.0 Hypertensive heart disease with heart failure (principal); I50.9 Heart failure, unspecified; R06.02 Shortness of breath; R05.9 Cough, unspecified; R07.89 Other chest pain; J44.9 Chronic obstructive pulmonary disease, unspecified; I25.10 Atherosclerotic heart disease of native coronary artery without angina pectoris; F15.90 Other stimulant use, unspecified, uncomplicated; Z98.890 Other specified postprocedural states; Z72.89 Other problems related to lifestyle; Z88.5 Allergy status to narcotic agent; Z79.899 Other long term (current) drug therapy
CPT/HCPCS: 36415; 71045; 80053; 83735; 83880; 84484; 85025; 93005; 96365; 99285; J3475